=== PATIENT | female | born 1995 | race Caucasian/White ===

== ENCOUNTER 2017-09-01 13:09 | Emergency (ER) | payer SELFPAY ==
--- NOTE | 2017-09-01 13:36 | ER Document Report ---
ED Medical Screen (RME) - General Chief Complaint: Abdominal Pain Stated Complaint: ABDOMINAL PAIN, FLANK PAIN Time Seen by Provider: 09/01/17 13:35 Mode of Arrival: Ambulatory Information source: Patient Notes: This is a 22-year-old female with a history of SVT (metoprolol), depression ( Zoloft) who presents to the emergency room with 2-3 weeks of lower back and abdominal discomfort, abnormal vaginal discharge, some dysuria and diarrhea. Her periods have been irregular. TRAVEL OUTSIDE OF THE [place] IN LAST 30 DAYS: No - Related Data Allergies/Adverse Reactions: No Known Allergies Allergy (Verified 09/01/17 13:09) Past Medical History - Social History Chew tobacco use (# tins/day): No Frequency of alcohol use: None Drug Abuse: None Renal/ Medical History: Denies: Hx Peritoneal Dialysis Physical Exam - Vital signs Vitals: Temp Pulse Resp BP Pulse Ox 98.5 F 92 16 117/59 L 100 09/01/17 13:15 09/01/17 13:15 09/01/17 13:15 09/01/17 13:15 09/01/17 13:15 Course - Vital Signs Vital signs: Temp Pulse Resp BP Pulse Ox 98.5 F 92 16 117/59 L 100 09/01/17 13:15 09/01/17 13:15 09/01/17 13:15 09/01/17 13:15 09/01/17 13:15
[2017-09-01 14:05] LABS: ABSOLUTE EOSINOPHILS # (AUTO) 0.1 10^3/uL (0.0-0.6); ABSOLUTE LYMPHOCYTES (AUTO) 1.3 10^3/uL (0.5-4.7); ABSOLUTE MONOCYTES (AUTO) 0.5 10^3/uL (0.1-1.4); ABSOLUTE NEUT (AUTO) 3.7 10^3/uL (1.7-8.2); BASOPHILS % (AUTO) 0.8 % (0-2); EOSINOPHILS % (AUTO) 2.6 % (0-6); HEMATOCRIT 45.5 % (36.0-47.0); HEMOGLOBIN 16.2 g/dL (12.0-15.5); LYMPHOCYTES % (AUTO) 23.1 % (13-45); MEAN CORPUSCULAR HEMOGLOBIN 32.4 pg (27.0-33.4); MEAN CORPUSCULAR HGB CONC 35.5 g/dL (32.0-36.0); MEAN CORPUSCULAR VOLUME 91 fl (80-97); PLATELET COUNT 225 10^3/uL (150-450); RED BLOOD COUNT 4.98 10^6/uL (3.72-5.28); RED CELL DISTRIBUTION WIDTH 13.2 % (11.5-14.0); SEGMENTED NEUTROPHILS % (AUTO) 65.5 % (42-78); TOTAL CELLS COUNTED % (AUTO) 100 %; WHITE BLOOD COUNT 5.7 10^3/uL (4.0-10.5)
[2017-09-01 14:10] LABS: APPEARANCE,URINE SLIGHTLY-CLOUDY; BILIRUBIN,URINE NEGATIVE (NEGATIVE); COLOR,URINE YELLOW; GLUCOSE, URINE NEGATIVE (NEGATIVE); KETONES,URINE NEGATIVE (NEGATIVE); LEUKOCYTE ESTERASE,URINE SMALL (NEGATIVE); NITRITE,URINE NEGATIVE (NEGATIVE); PROTEIN,URINE NEGATIVE (NEGATIVE); URINE SPECIFIC GRAVITY 1.004; UROBILINOGEN,URINE NEGATIVE mg/dL (<2.0)
[2017-09-01 14:19] LABS: ALANINE AMINOTRANSFERASE 42 U/L (9-52); ALBUMIN 4.8 g/dL (3.5-5.0); ALKALINE PHOSPHATASE 49 U/L (38-126); ANION GAP 12 (5-19); ASPARTATE AMINO TRANSFERASE 31 U/L (14-36); BILIRUBIN,DIRECT 0.2 mg/dL (0.0-0.4); BILIRUBIN,TOTAL 0.4 mg/dL (0.2-1.3); BLOOD UREA NITROGEN 10 mg/dL (7-20); CALCIUM 9.9 mg/dL (8.4-10.2); CARBON DIOXIDE 27 mmol/L (22-30); CHLORIDE 105 mmol/L (98-107); GLUCOSE 73 mg/dL (75-110); POTASSIUM 4.4 mmol/L (3.6-5.0); SODIUM 144.4 mmol/L (137-145); TOTAL PROTEIN 8.1 g/dL (6.3-8.2)
--- NOTE | 2017-09-01 14:38 | ER Document Report ---
ED General - General Chief Complaint: Abdominal Pain Stated Complaint: ABDOMINAL PAIN, FLANK PAIN Time Seen by Provider: 09/01/17 13:35 Mode of Arrival: Ambulatory Information source: Patient Notes: 22 yr old female presents with 3 week duration of abd pain. pt notes nausea vomiting diarrhea. pt denies any fevers or chills. pt notes no concern for stds and does not want ot be tested. pt notes irregular period . pt states she did have a uti a few weeks ago given 5 days of a white or light blue antibiotics that improved symptoms for a few days then it returned. TRAVEL OUTSIDE OF THE [place] IN LAST 30 DAYS: No - HPI Onset: Other Onset/Duration: Intermittent, Waxing and waning Quality of pain: Cramping Severity: Mild Pain Level: 1 Associated symptoms: Diarrhea, Nausea, Vomiting, Other Exacerbated by: Denies Relieved by: Denies Similar symptoms previously: Yes Recently seen / treated by doctor: Yes - Related Data Allergies/Adverse Reactions: No Known Allergies Allergy (Verified 09/01/17 13:09) Past Medical History - General Information source: Patient - Social History Smoking Status: Former Smoker Cigarette use (# per day): No Chew tobacco use (# tins/day): No Smoking Education Provided: No Frequency of alcohol use: None Drug Abuse: None Family History: Reviewed & Not Pertinent Patient has suicidal ideation: No Patient has homicidal ideation: No Renal/ Medical History: Denies: Hx Peritoneal Dialysis Past Surgical History: Reports: Hx Tonsillectomy Review of Systems - Review of Systems Notes: REVIEW OF SYSTEMS: CONSTITUTIONAL : Denies fever, chills, or sweats. Denies recent illness. EENT: Denies eye, ear, throat, or mouth pain or symptoms. Denies nasal or sinus congestion or discharge. Denies throat, tongue, or mouth swelling or difficulty swallowing. CARDIOVASCULAR: Denies chest pain. Denies palpitations or racing or irregular heart beat. Denies ankle edema. RESPIRATORY: Denies cough, cold, or chest congestion. Denies shortness of breath, difficulty breathing, or wheezing. GASTROINTESTINAL: Admits to nausea vomiting diarrhea. GENITOURINARY: Denies difficulty urinating, painful urination, burning, frequency, blood in urine, or discharge. FEMALE GENITOURINARY: Denies vaginal bleeding, heavy or abnormal periods, irregular periods. Denies vaginal discharge or odor. MUSCULOSKELETAL: Denies back or neck pain or stiffness. Denies joint pain or swelling. SKIN: Denies rash, lesions or sores. HEMATOLOGIC : Denies easy bruising or bleeding. LYMPHATIC: Denies swollen, enlarged glands. NEUROLOGICAL: Denies confusion or altered mental status. Denies passing out or loss of consciousness. Denies dizziness or lightheadedness. Denies headache. Denies weakness or paralysis or loss of use of either side. Denies problems with gait or speech. Denies sensory loss, numbness, or tingling. Denies seizures. PSYCHIATRIC: Denies anxiety or stress. Denies depression, suicidal ideation, or homicidal ideation. ALL OTHER SYSTEMS REVIEWED AND NEGATIVE. PHYSICAL EXAMINATION: GENERAL: Well-appearing, well-nourished and in no acute distress. Sleeping upon my arrival to the room HEAD: Atraumatic, normocephalic. EYES: Pupils equal round and reactive to light, extraocular movements intact, conjunctiva are normal. ENT: Nares patent, oropharynx clear without exudates. Moist mucous membranes. NECK: Normal range of motion, supple without lymphadenopathy LUNGS: Breath sounds clear to auscultation bilaterally and equal. No wheezes rales or rhonchi. HEART: Regular rate and rhythm without murmurs ABDOMEN: Soft, minimally tender left lower quadrant, nondistended abdomen. No guarding, no rebound. No masses appreciated. Female : deferred Musculoskeletal: Normal range of motion, no pitting or edema. No cyanosis. NEUROLOGICAL: Cranial nerves grossly intact. Normal speech, normal gait. Normal sensory, motor exams PSYCH: Normal mood, normal affect. SKIN: Warm, Dry, normal turgor, no rashes or lesions noted. Dictation was performed using [employer] voice recognition software Physical Exam - Vital signs Vitals: Temp Pulse Resp BP Pulse Ox 98.5 F 92 16 117/59 L 100 09/01/17 13:15 09/01/17 13:15 09/01/17 13:15 09/01/17 13:15 09/01/17 13:15 Course - Re-evaluation Re-evalutation: 09/01/17 14:48 Patient's evaluation is quite benign, she requests testing for ovarian cysts since she has had this in the past 09/01/17 15:50 U/s transvaginal wit doppler noted no significant abnormality, will dc home with antibiotics and urien culture pending After performing a Medical Screening Examination, I estimate there is LOW risk for ACUTE APPENDICITIS, BOWEL OBSTRUCTION, ACUTE CHOLECYSTITIS, PERFORATED DIVERTICULITIS, INCARCERATED HERNIA, PANCREATITIS, PELVIC INFLAMMATORY DISEASE, PERFORATED ULCER, ECTOPIC , or TUBO-OVARIAN ABSCESS, thus I consider the discharge disposition reasonable. Also, there is no evidence or peritonitis , sepsis, or toxicity. I have reevaluated this patient multiple times and no significant life threatening changes are noted. The patient and I have discussed the diagnosis and risks, and we agree with discharging home with close follow-up with the understanding that symptoms and presentations can change. We also discussed returning to the Emergency Department immediately if new or worsening symptoms occur. We have discussed the symptoms which are most concerning (e.g., bloody stool, fever, changing or worsening pain, vomiting) that necessitate immediate return. - Vital Signs Vital signs: Temp Pulse Resp BP Pulse Ox 98.5 F 92 16 117/59 L 100 09/01/17 13:15 09/01/17 13:15 09/01/17 13:15 09/01/17 13:15 09/01/17 13:15 - Laboratory Result Diagrams: 09/01/17 13:43 09/01/17 13:43 Laboratory results interpreted by me: 09/01/17 09/01/17 09/01/17 13:43 13:43 13:43 Hgb 16.2 H Glucose 73 L Ur Leukocyte Esterase SMALL H - Diagnostic Test Radiology reviewed: Image reviewed, Reports reviewed Discharge - Discharge Clinical Impression: UTI (urinary tract infection) Qualifiers: Urinary tract infection type: acute cystitis Hematuria presence: without hematuria Qualified Code(s): N30.00 - Acute cystitis without hematuria Abdominal pain Qualifiers: Abdominal location: left lower quadrant Qualified Code(s): R10.32 - Left lower quadrant pain Condition: Stable Disposition: HOME, SELF-CARE Instructions: Abdominal Pain ([facility]), Urinary Tract Infection ([facility]) Additional Instructions: Follow up with your physician tomorrow for further care or return to the ED IMMEDIATELY if symptoms worsen or new concerns occur. If you cannot afford to follow up with your primary care physician a list of low cost clinics have been provided at the end of your discharge papers as well. Prescriptions: Nitrofurantoin Monohyd/M-Cryst [Macrobid 100 mg Capsule] 1 tab PO BID #20 capsule
--- NOTE | 2017-09-01 15:28 | RADIOLOGY REPORT (SQ) ---
EXAM DESCRIPTION: U/S NON OB PEL TV W/DOPPLER COMPLETED DATE/TIME: 09/01/2017 3:16 pm REASON FOR STUDY: LLQ pain COMPARISON: None. TECHNIQUE: Dynamic and static grayscale images acquired of the pelvis via transvaginal approach and recorded on PACS. Additional selected color Doppler and spectral images recorded. LIMITATIONS: None. FINDINGS: UTERUS: Contour normal. No mass. ENDOMETRIAL STRIPE: No focal or generalized thickening. No masses. CERVIX: No nabothian cysts. RIGHT OVARY AND DOPPLER: Normal size. No worrisome masses. Normal arterial vascular flow without evid ence for torsion. LEFT OVARY AND DOPPLER: Normal size. No worrisome masses. Normal arterial vascular flow without evide nce for torsion. FREE FLUID: None noted. OTHER: No other significant finding. MEASUREMENTS: UTERUS: 4.4 x 5.9 x 7.7 cm. ENDOMETRIAL STRIPE: 1.1 cm. RIGHT OVARY: 1.6 x 1.5 x 3.5 cm. LEFT OVARY: 2.1 x 2.4 x 2.9 cm. IMPRESSION: NORMAL TRANSVAGINAL PELVIC ULTRASOUND. TECHNICAL DOCUMENTATION: JOB ID: [id number]- All Rights Reserved Rev-08/30 Reading location - IP/workstation name: [email or web address]
[2017-09-01 16:49] VITALS: BP 108/58
[2017-09-01 17:49] LABS: CHLAM PCR NOT DETECTED (NOT DETECT); GON PCR NOT DETECTED (NOT DETECT)
== END 2017-09-01 16:48 | disposition home or self-care (01) ==
LOC: ER 13:09
DX: N30.00 Acute cystitis without hematuria (principal); R10.32 Left lower quadrant pain; R11.2 Nausea with vomiting, unspecified; R19.7 Diarrhea, unspecified; Z87.891 Personal history of nicotine dependence
CPT/HCPCS: 36415; 76830; 80053; 81001; 84702; 85025; 87086; 87491; 87591; 93976; 99284

== ENCOUNTER 2017-12-19 08:15 | Emergency (ER) | payer OTHER, BC ==
[2017-12-19] MEDS ORDERED: OXYCODONE-ACETAMINOPHEN 5-325 MG TABLET PO ONE (09:14)
[2017-12-19] MEDS ORDERED: DIPH/PERTUSS(ACELL)/TETANUS VAC/PF 0.5 ML SYR (>=10YO) IM ONE (09:14)
[2017-12-19] MEDS ORDERED: IBUPROFEN 800 MG TABLET PO ONE (09:30)
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
[2017-12-19] MEDS ORDERED: LIDOCAINE 1% INJ-PF (10 MG/ML) 30 ML SDV INJ ONE (10:50)
[2017-12-19 11:25] VITALS: BP 117/61
== END 2017-12-19 12:00 | disposition home or self-care (01) ==
LOC: ER 08:15
DX: S01.512A Laceration without foreign body of oral cavity, initial encounter (principal); S09.90XA Unspecified injury of head, initial encounter; R51 Headache; V49.40XA Driver injured in collision with unspecified motor vehicles in traffic accident, initial encounter
CPT/HCPCS: 99284; 90471; 70450; 72125; 90715; 41250; J3490

== ENCOUNTER 2019-05-11 13:26 | Emergency (ER) | payer BC, OTHER ==
[2019-05-11] MEDS ORDERED: NORMAL SALINE 1000 ML 1,000 ML IV ONE (14:50)
[2019-05-11] MEDS ORDERED: METOCLOPRAMIDE HCL INJ/PF 10 MG/2 ML SDV IV ONE (14:51)
--- NOTE | 2019-05-11 14:53 | ER Document Report ---
ED General - General Chief Complaint: Abdominal Pain Stated Complaint: ABDOMINAL PAIN Time Seen by Provider: 05/11/19 14:30 Primary Care Provider: THOM PARDO FNP [Primary Care Provider] - Follow up as needed Mode of Arrival: Ambulatory Information source: Patient TRAVEL OUTSIDE OF THE [place] IN LAST 30 DAYS: No - HPI Notes: Patient presents with abdominal pain. She also states that she has been feeling weak dizzy and having vomiting. She states she is 7 weeks . She states the symptoms have been going on for several weeks except for the pain. She states the pain started this morning. She states nothing makes it better or worse. It is currently mild. It is intermittent. She states it radiates throughout her abdomen. She denies any vaginal bleeding or leakage of fluid. She has no complaints of dysuria or problems with urination. No diarrhea. She states this is her first . - Related Data Allergies/Adverse Reactions: No Known Allergies Allergy (Verified 09/01/17 13:09) Past Medical History - General Information source: Patient - Social History Smoking Status: Never Smoker Frequency of alcohol use: None Drug Abuse: None Family History: Reviewed & Not Pertinent Renal/ Medical History: Denies: Hx Peritoneal Dialysis Psychiatric Medical History: Reports: Hx Anxiety Past Surgical History: Reports: Hx Tonsillectomy Review of Systems - Review of Systems Constitutional: denies: Chills, Fever Cardiovascular: denies: Chest pain, Palpitations Respiratory: denies: Cough, Short of breath -: Yes All other systems reviewed and negative Physical Exam - Vital signs Vitals: Temp Pulse Resp BP Pulse Ox 98.3 F 69 16 111/61 100 05/11/19 13:34 05/11/19 13:34 05/11/19 13:34 05/11/19 13:34 05/11/19 13:34 Interpretation: Normal - General General appearance: Appears well, Alert - HEENT Head: Normocephalic, Atraumatic Eyes: Normal Pupils: PERRL - Respiratory Respiratory status: No respiratory distress Chest status: Nontender Breath sounds: Normal Chest palpation: Normal - Cardiovascular Rhythm: Regular Heart sounds: Normal auscultation Murmur: No - Abdominal Inspection: Normal Distension: No distension Bowel sounds: Normal Tenderness: Tender - Mild lower abdominal pain with palpation no rebound or guarding. Organomegaly: No organomegaly - Back Back: Normal, Nontender - Extremities General upper extremity: Normal inspection, Nontender, Normal color, Normal ROM, Normal temperature General lower extremity: Normal inspection, Nontender, Normal color, Normal ROM, Normal temperature, Normal weight bearing. No: Gerardo's sign - Neurological Neuro grossly intact: Yes Cognition: Normal Orientation: AAOx4 [place] Coma Scale Eye Opening: Spontaneous Mike Coma Scale Verbal: Oriented [place] Coma Scale Motor: Obeys Commands [place] Coma Scale Total: 15 Speech: Normal Motor strength normal: LUE, RUE, LLE, RLE Sensory: Normal - Psychological Associated symptoms: Normal affect, Normal mood - Skin Skin Temperature: Warm Skin Moisture: Dry Skin Color: Normal Course - Re-evaluation Re-evalutation: 05/11/19 17:00 Patient presented with abdominal pain and vomiting as well as some dizziness. L aboratories unremarkable other than asymptomatic bacteriuria. Because she is I will treat this with Macrobid. She does feel better after fluids and antiemetics. She has tried the Unisom and vitamin B6 at home with no relief. I will discharge the patient with some Reglan and encourage fluid rehydration. She does have an appointment next week with her [employer] provider. Ultrasound shows a normal developing IUP at this stage. - Vital Signs Vital signs: Temp Pulse Resp BP Pulse Ox 98.3 F 69 16 111/61 100 05/11/19 13:34 05/11/19 13:34 05/11/19 13:34 05/11/19 13:34 05/11/19 13:34 - Laboratory Result Diagrams: 05/11/19 15:05 05/11/19 15:05 Laboratory results interpreted by me: 05/11/19 05/11/19 05/11/19 15:05 15:05 16:00 Seg Neutrophils % 78.4 H Sodium 135.5 L Beta HCG, Quant 676011.00 H Urine Ketones TRACE H Leukocyte Esterase Rfl MODERATE H - Diagnostic Test Radiology reviewed: Image reviewed, Reports reviewed Discharge - Discharge Clinical Impression: Hyperemesis affecting , antepartum, Abdominal pain during intrauterine , Asymptomatic bacteriuria during in first trimester Condition: Stable Disposition: HOME, SELF-CARE Instructions: Intravenous (IV) Fluids ([facility]), Reglan ([facility]) Additional Instructions: Please follow-up with your engineer assistant as scheduled Prescriptions: Nitrofurantoin Macrocrystal [Nitrofurantoin] 100 mg PO BID 5 Days #10 capsule Metoclopramide HCl [Reglan 10 mg Tablet] 1 tab PO Q6 #20 tablet Forms: Return to Work Referrals: THOM PARDO FNP [Primary Care Provider] - Follow up as needed
[2019-05-11 15:28] LABS: ABSOLUTE LYMPHOCYTES (AUTO) 1.3 10^3/uL (0.5-4.7); ABSOLUTE MONOCYTES (AUTO) 0.4 10^3/uL (0.1-1.4); ABSOLUTE NEUT (AUTO) 6.5 10^3/uL (1.7-8.2); BASOPHILS % (AUTO) 0.6 % (0-2); EOSINOPHILS % (AUTO) 0.2 % (0-6); HEMATOCRIT 41.9 % (36.0-47.0); HEMOGLOBIN 14.8 g/dL (12.0-15.5); LYMPHOCYTES % (AUTO) 15.9 % (13-45); MEAN CORPUSCULAR HEMOGLOBIN 32.1 pg (27.0-33.4); MEAN CORPUSCULAR HGB CONC 35.3 g/dL (32.0-36.0); MEAN CORPUSCULAR VOLUME 91 fl (80-97); MONOCYTES % (AUTO) 4.9 % (3-13); PLATELET COUNT 203 10^3/uL (150-450); RED CELL DISTRIBUTION WIDTH 12.9 % (11.5-14.0); SEGMENTED NEUTROPHILS % (AUTO) 78.4 % (42-78); TOTAL CELLS COUNTED % (AUTO) 100 %; WHITE BLOOD COUNT 8.2 10^3/uL (4.0-10.5)
[2019-05-11 15:44] LABS: ALBUMIN 4.2 g/dL (3.5-5.0); ALKALINE PHOSPHATASE 43 U/L (38-126); ANION GAP 9 (5-19); ASPARTATE AMINO TRANSFERASE 22 U/L (14-36); BILIRUBIN,TOTAL 0.4 mg/dL (0.2-1.3); BLOOD UREA NITROGEN 8 mg/dL (7-20); CALCIUM 9.5 mg/dL (8.4-10.2); CARBON DIOXIDE 24 mmol/L (22-30); CHLORIDE 103 mmol/L (98-107); GLUCOSE 96 mg/dL (75-110); TOTAL PROTEIN 7.1 g/dL (6.3-8.2)
[2019-05-11 16:34] LABS: APPEARANCE,URINE CLOUDY; BILIRUBIN,URINE NEGATIVE (NEGATIVE); COLOR,URINE YELLOW; GLUCOSE, URINE NEGATIVE (NEGATIVE); KETONES,URINE TRACE mg/dL (NEGATIVE); PROTEIN,URINE NEGATIVE (NEGATIVE); URINE SPECIFIC GRAVITY 1.008; UROBILINOGEN,URINE NEGATIVE mg/dL (<2.0)
--- NOTE | 2019-05-11 16:36 | RADIOLOGY REPORT (SQ) ---
EXAM DESCRIPTION: U/S OB TRANSVAGINAL W/O DOP COMPLETED DATE/TIME: 05/11/2019 4:22 pm REASON FOR STUDY: preg/pain COMPARISON: None. TECHNIQUE: Transvaginal static and realtime grayscale images acquired of the pelvis. Additional farheen cted spectral and color Doppler images recorded. All images stored on PACs. bHCG: Not available. CLINICAL DATES: 6 weeks 6 days. LIMITATIONS: None. FINDINGS: FETUS: Single Living intrauterine . ULTRASOUND EGA: 6 weeks 4 days. ULTRASOUND [place]: 12/31/2019. EFW: Not applicable less than 20 weeks. CRL: 6.6 mm. FHR: 100 beats per minute. SURVEY: Too early to assess. AMNIOTIC FLUID: Too early to assess. PLACENTA: Not yet developed due to early gestation. SUBCHORIONIC BLEED: No. SIZE OF BLEED: Not applicable. UTERUS: No masses. No anomalies. CERVICAL LENGTH: 2.6 cm. Closed. RIGHT ADNEXA: Normal ovary with normal vascular flow. No adnexal free fluid. No adnexal masses. LEFT ADNEXA: Normal ovary with normal vascular flow. No adnexal free fluid. No adnexal masses. FREE FLUID: None. OTHER: No other significant finding. IMPRESSION: LIVING INTRAUTERINE . EGA 6 WEEKS 4 DAYS. Trimester of : First trimester - 0 to 13 weeks. TECHNICAL DOCUMENTATION: JOB ID: [id number] [employer]- All Rights Reserved rev-08/30 Reading location - IP/workstation name: [email or web address]
[2019-05-11 17:25] VITALS: BP 115/53
== END 2019-05-11 17:24 | disposition home or self-care (01) ==
LOC: ER 13:26
DX: O21.8 Other vomiting complicating pregnancy (principal); R82.71 Bacteriuria; R10.9 Unspecified abdominal pain; R42 Dizziness and giddiness; R53.1 Weakness; Z3A.01 Less than 8 weeks gestation of pregnancy
CPT/HCPCS: 99284; 96361; 96374; 36415; 84702; 83690; 85025; 80053; 81001; 76817; J2765; J7030

== ENCOUNTER 2019-11-10 14:26 | Outpatient (CLI) | payer OTHER ==
[2019-11-10 15:24] LABS: APPEARANCE,URINE CLOUDY; BILIRUBIN,URINE NEGATIVE (NEGATIVE); COLOR,URINE AMBER; GLUCOSE, URINE NEGATIVE (NEGATIVE); KETONES,URINE NEGATIVE (NEGATIVE); LEUKOCYTE ESTERASE,URINE SMALL (NEGATIVE); NITRITE,URINE NEGATIVE (NEGATIVE); PROTEIN,URINE 30 mg/dL (NEGATIVE); URINE SPECIFIC GRAVITY 1.017
[2019-11-10 15:29] LABS: BACTERIA (WET MOUNT) 4+ BACTERIA SEEN; EPITHELIALS (WET MOUNT) 3+ EPITHELIALS SEEN; T.VAGINALIS (WET MOUNT) NO TRICHOMONAS SEEN; WBCS (WET MOUNT) 3+ WBCS SEEN; YEAST (WET MOUNT) YEAST SEEN
[2019-11-10 15:42] LABS: URINE AMPHETAMINES SCREEN NEGATIVE; URINE BARBITURATES SCREEN NEGATIVE; URINE BENZODIAZEPINES SCREEN NEGATIVE; URINE COCAINE SCREEN NEGATIVE; URINE MARIJUANA (THC) SCREEN NEGATIVE; URINE METHADONE SCREEN NEGATIVE; URINE PHENCYCLIDINE SCREEN NEGATIVE
[2019-11-10] MEDS ORDERED: FLUCONAZOLE 100 MG TABLET PO ONE (16:18)
[2019-11-10] MEDS ORDERED: FLUCONAZOLE 100 MG TABLET ONE (16:22)
[2019-11-10 17:00] LABS: CHLAM PCR NOT DETECTED (NOT DETECT)
== END 2019-11-10 16:44 | disposition home or self-care (01) ==
LOC: LC 14:26
PROVIDERS: ATTEND Obstetrics & Gynecology Gynecology
DX: O98.813 Other maternal infectious and parasitic diseases complicating pregnancy, third trimester (principal); Z3A.32 32 weeks gestation of pregnancy
CPT/HCPCS: 59025; 80307; 81001; 84112; 87210; 87491; 87591

== ENCOUNTER 2019-11-25 15:25 | Outpatient (CLI) | payer BC ==
--- NOTE | 2019-11-25 15:29 | Non Stress Test Report ---
Non Stress Test Datetime Report Generated by CPN: 11/25/2019 15:28 DEMOGRAPHIC EGA NST: 32.2 INDICATION Indication for Study (NST) Other: Yeast infection; IUP at 32.2 VITAL SIGNS Temperature - NST: 98.8 Pulse - NST: 94 RESP - NST: 18 NBPSYS NST: 101 NBPDIA NST: 61 MONITORING Monitor Explained: Monitor Explained; Test Explained; Patient Verbalized Understanding Time on Monitor: 11/10/2019 14:49 Time off Monitor: 11/10/2019 16:30 NST Duration: 101 NST INTERVENTIONS NST Interventions: PO Hydration Physician Notified NST: K. Collins, CNM BABY A: [id number] BABY A Movement : Present Contraction Frequency : Irritability FHR Baseline : 145 Accelerations : 15X15 Decelerations : None Variability : Moderate 6-25bpm NST Review: Meets Criteria for Reactive NST NST Review and Verified By : Cosme Fuentes RN NST Results: Reactive NST REPORT Report Trigger: Send Report
[2019-11-25] MEDS ORDERED: RINGERS SOLUTION,LACTATED 1,000 ML IV PRN (15:59)
[2019-11-25 16:02] LABS: APPEARANCE,URINE TURBID; BILIRUBIN,URINE NEGATIVE (NEGATIVE); COLOR,URINE YELLOW; GLUCOSE, URINE NEGATIVE (NEGATIVE); KETONES,URINE TRACE mg/dL (NEGATIVE); LEUKOCYTE ESTERASE,URINE TRACE (NEGATIVE); NITRITE,URINE NEGATIVE (NEGATIVE); PROTEIN,URINE 30 mg/dL (NEGATIVE); URINE SPECIFIC GRAVITY 1.013; UROBILINOGEN,URINE NEGATIVE mg/dL (<2.0)
[2019-11-25 16:15] LABS: URINE AMPHETAMINES SCREEN NEGATIVE; URINE BARBITURATES SCREEN NEGATIVE; URINE BENZODIAZEPINES SCREEN NEGATIVE; URINE COCAINE SCREEN NEGATIVE; URINE MARIJUANA (THC) SCREEN NEGATIVE; URINE METHADONE SCREEN NEGATIVE; URINE PHENCYCLIDINE SCREEN NEGATIVE
--- NOTE | 2019-11-25 17:38 | Non Stress Test Report ---
Non Stress Test Datetime Report Generated by CPN: 11/25/2019 17:38 DEMOGRAPHIC Test Number: 1 EGA NST: 34.3 VITAL SIGNS Temperature - NST: 97.0 Pulse - NST: 111 RESP - NST: 18 NBPSYS NST: 103 NBPDIA NST: 63 MONITORING Monitor Explained: Monitor Explained; Test Explained; Patient Verbalized Understanding Time on Monitor: 11/25/2019 15:39 Time off Monitor: 11/25/2019 16:57 NST Duration: 78 NST INTERVENTIONS NST Interventions: PO Hydration; IV Fluids; Reposition Patient Physician Notified NST: Dr. Adams BABY A Movement : Present Contraction Frequency : irregular FHR Baseline : 145 Accelerations : 15X15 Decelerations : None Variability : Moderate 6-25bpm NST Review: Meets Criteria for Reactive NST NST Review and Verified By : RAMIN Salcedo NST Results: Reactive NST REPORT Report Trigger: Send Report Report Trigger: Send Report
--- NOTE | 2019-11-25 18:24 | RADIOLOGY REPORT (SQ) ---
EXAM DESCRIPTION: U/S PROFILE W/O STRESS IMAGES COMPLETED DATE/TIME: 11/25/2019 5:30 pm REASON FOR STUDY: decreased movement IUP @ 34w6d COMPARISON: None. TECHNIQUE: Limited rudolph-scale realtime and static images of the fetus to measure specified parameter s. LIMITATIONS: None. FINDINGS: HEART RATE: 152 beats per minute. KRISTIE: 17.2 cm. MVP: 5.7 cm. BREATHING MOVEMENT: 2 points. MOVEMENT: 2 points. POSTURE AND TONE: 2 points. QUALITATIVE KRISTIE: 2 points. OTHER: No other significant finding. IMPRESSION: BIOPHYSICAL PROFILE: 11/20. Trimester of : Third - 28 weeks to delivery COMMENT: BREATHING MOVEMENTS: 2 POINTS: PRESENT 0 POINTS: ABSENT MOTION: 2 POINTS: PRESENT 0 POINTS: ABSENT TONE: 2 POINTS: PRESENT 0 POINTS: ABSENT AMNIOTIC FLUID VOLUME: 2 POINTS: LARGEST POCKET GREATER THAN 2 CM DEPTH. 0 POINTS: NO POCKET OF 2 CM. TECHNICAL DOCUMENTATION: JOB ID: [id number] 2010 [employer]- All Rights Reserved Reading location - IP/workstation name: [email or web address]
== END 2019-11-25 17:37 | disposition home or self-care (01) ==
LOC: LC 15:25
PROVIDERS: ATTEND Specialist
DX: O36.8130 Decreased fetal movements, third trimester, not applicable or unspecified (principal); Z3A.34 34 weeks gestation of pregnancy
CPT/HCPCS: 59025; 76819; 80307; 81001; 87086; 94760

== ENCOUNTER 2019-11-28 23:37 | Emergency (ER) | payer BC ==
[2019-11-28 23:53] VITALS: BP 125/67
--- NOTE | 2019-11-29 00:05 | ER Document Report ---
ED Medical Screen (RME) - General Stated Complaint: HEART PALPITATIONS Time Seen by Provider: 11/28/19 23:59 Primary Care Provider: JOSHUA HORTON MD [Primary Care Provider] - Follow up as needed Mode of Arrival: Ambulatory Information source: Patient Notes: HPI; 35-week female 1 presents to the emergency room complaining of intermittent palpitations since Saturday. States was worse tonight. Chest pain does complain of shortness of breath. States she went to labor and delivery and was sent to the emergency room to be evaluated. States it was first noted on Saturday when she did come in for a labor check but has not followed up with anybody since being seen on Saturday. She denies any recent travel. No COVID-19 exposure. PE: Alert and oriented x3. Lungs: Clear to auscultation without rales, rhonchi, wheezes. Heart tachycardic without murmurs rubs or gallops. I have greeted and performed a rapid initial assessment of this patient. A comprehensive ED assessment and evaluation of the patient, analysis of test results and completion of the medical decision making process will be conducted by additional ED providers. I have specifically instructed the patient or family members with the patient to immediately return to any nursing staff should anything change in the patient's condition or with their chief complaint. TRAVEL OUTSIDE OF THE [place] IN LAST 30 DAYS: No - Related Data Allergies/Adverse Reactions: No Known Allergies Allergy (Verified 11/10/19 14:38) Past Medical History Renal/ Medical History: Denies: Hx Peritoneal Dialysis Psychiatric Medical History: Reports: Hx Anxiety Past Surgical History: Reports: Hx Tonsillectomy Physical Exam - Vital signs Vitals: Temp Pulse Resp BP Pulse Ox 98.0 F 140 H 18 125/67 100 11/28/19 23:52 11/28/19 23:52 11/28/19 23:52 11/28/19 23:52 11/28/19 23:52 Course - Vital Signs Vital signs: Temp Pulse Resp BP Pulse Ox 98.0 F 140 H 18 125/67 100 11/28/19 23:52 11/28/19 23:52 11/28/19 23:52 11/28/19 23:52 11/28/19 23:52 Doctor's Discharge - Discharge Referrals: JOSHUA HORTON MD [Primary Care Provider] - Follow up as needed
--- NOTE | 2019-11-29 08:30 | EKG REPORT ---
SEVERITY:- BORDERLINE ECG - SINUS TACHYCARDIA INFERIOR Q WAVES, PROBABLY NORMAL VARIATION : Confirmed by: Zane Bryant MD 29-Nov-2019 08:29:43
== END 2019-11-29 01:15 | disposition admitted as inpatient to this hospital (09) ==
LOC: ER 23:37
DX: Z53.20 Procedure and treatment not carried out because of patient's decision for unspecified reasons (principal); R00.2 Palpitations
CPT/HCPCS: 93005; 93010; 99281

== ENCOUNTER → 2019-12-16 | Outpatient (CLI) | payer BC ==
--- NOTE | 2019-12-16 23:24 | Non Stress Test Report ---
Non Stress Test Datetime Report Generated by CPN: 12/16/2019 23:23 DEMOGRAPHIC EGA NST: 35.0 INDICATION Indication for Study (NST) Other: Greater than 32 weeks URINE RESULTS Urine Protein, NST: Negative Urine Ketones - NST: Negative Urine Glucose - NST: Negative Urine Blood - NST: Negative MONITORING Monitor Explained: Monitor Explained; Test Explained; Patient Verbalized Understanding Time on Monitor: 11/29/2019 01:47 Time off Monitor: 11/29/2019 03:27 NST INTERVENTIONS NST Interventions: PO Hydration Physician Notified NST: Dr. Deng BABY A: [id number] BABY A Movement : Present Contraction Frequency : Rarely FHR Baseline : 140 Accelerations : 15X15 Decelerations : None Variability : Moderate 6-25bpm NST Review: Meets Criteria for Reactive NST NST Review and Verified By : rose CLAYTON Results: Reactive NST REPORT Report Trigger: Send Report
--- NOTE | 2019-12-17 02:12 | Non Stress Test Report ---
Non Stress Test Datetime Report Generated by CPN: 12/17/2019 02:11 DEMOGRAPHIC EGA NST: 37.3 INDICATION Indication for Study (NST) Other: Labor check- contractions VITAL SIGNS Temperature - NST: 99.0 Pulse - NST: 88 RESP - NST: 17 NBPSYS NST: 113 NBPDIA NST: 63 (Annotations: Data stored by CPN on behalf of user) MONITORING Monitor Explained: Monitor Explained; Test Explained; Patient Verbalized Understanding Time on Monitor: 12/16/2019 23:24 Time off Monitor: 12/16/2019 23:53 NST INTERVENTIONS NST Interventions: PO Hydration; Reposition Patient Physician Notified NST: dr elliott BABY A Movement : Present Contraction Frequency : occasional FHR Baseline : 145 Accelerations : 15X15 Decelerations : None Variability : Moderate 6-25bpm NST Review: Meets Criteria for Reactive NST NST Review and Verified By : RAMIN Rodríguez Results: Reactive NST REPORT Report Trigger: Send Report
== END ==
LOC: LC 23:11
PROVIDERS: ATTEND Obstetrics & Gynecology
DX: O47.1 False labor at or after 37 completed weeks of gestation (principal); Z3A.37 37 weeks gestation of pregnancy; Z02.83 Encounter for blood-alcohol and blood-drug test
CPT/HCPCS: 59025; 80307; 81005

== ENCOUNTER 2019-12-24 05:08 | Inpatient (IN) | payer BC ==
[2019-12-24 06:49] LABS: APPEARANCE,URINE CLEAR; BILIRUBIN,URINE NEGATIVE (NEGATIVE); COLOR,URINE YELLOW; GLUCOSE, URINE NEGATIVE (NEGATIVE); KETONES,URINE NEGATIVE (NEGATIVE); LEUKOCYTE ESTERASE,URINE NEGATIVE (NEGATIVE); NITRITE,URINE NEGATIVE (NEGATIVE); PROTEIN,URINE NEGATIVE (NEGATIVE); URINE SPECIFIC GRAVITY 1.009; UROBILINOGEN,URINE NEGATIVE mg/dL (<2.0)
[2019-12-24 07:14] LABS: URINE AMPHETAMINES SCREEN NEGATIVE; URINE BARBITURATES SCREEN NEGATIVE; URINE BENZODIAZEPINES SCREEN NEGATIVE; URINE COCAINE SCREEN NEGATIVE; URINE MARIJUANA (THC) SCREEN NEGATIVE; URINE METHADONE SCREEN NEGATIVE; URINE PHENCYCLIDINE SCREEN NEGATIVE
[2019-12-24] MEDS ORDERED: RINGERS SOLUTION,LACTATED 1,000 ML IV ONE (09:33)
--- NOTE | 2019-12-24 09:36 | Admission Physical ---
Datetime Report Generated by CPN: 12/24/2019 09:36 CURRENT ADMISSION Chief Complaint: Uterine Contractions Indication for Induction: Not Applicable Admit Impression : Term, Intrauterine Admit Plan: Admit to Unit; Initiate Labor Protocol ALLERGIES Medication Allergies: No Medication Allergies: No Known Allergies (12/17/2019) Latex: No Latex Allergies OBSTETRICAL HISTORY EDC: 01/03/2020 00:00 : 1 Para: 0 Term: 0 : 0 SAB: 0 IAB: 0 Ectopic: 0 Livin Cesareans: 0 VBACs: 0 Multiple Births: 0 Gestational Diabetes: No Rh Sensitization: No Incompetent Cervix: No JODY: No Infertility: No ART Treatment: No Uterine Anomaly: No IUGR: No Hx Previous C/S: No Macrosomia: No Hx Loss/Stillborn: No PIH: No Hx : No Placenta Previa/Abruption: No Depression/PP Depression: No PTL/PROM: No Post Hemorrhage: No Current Procedures: Ultrasound; NST Obstetrical History Comments: G1- current SEE RECORDS Alcohol: No Marijuana : No Cocaine: No Other Illicit Drugs: No Cigarettes: Former Smoker. [id number] MEDICAL HISTORY Diabetes: No Blood Transfusion: No Pulmonary Disease (Asthma, TB): No Breast Disease: No Hypertension: Yes Inclusion Internship Surgery: No Heart Disease: Yes Hosp/Surgery: Yes Autoimmune Disorder: No Anesthetic Complications: No Kidney Disease: No Abnormal Pap Smear: No Neuro/Epilepsy: No Psychiatric Disorders: Yes Other Medical Diseases: No Hepatitis/Liver Disease: No Significant Family History: No Varicosities/Phlebitis: No Trauma/Violence : No Thyroid Dysfunction: No Medical History Comments: HTN, SVT, hospitalized for hyperemesis gravidarum in april 2019, hospitalized for dehydration in 2019, tonsillectomy 2008, anxiety- on zoloft INFECTIOUS HISTORY Gonorrhea: No Genital Herpes: No Chlamydia: No Tuberculosis: No Syphilis: No Hepatitis: No HIV/AIDS Exposure: No Rash or Viral Illness: No HPV: No PHYSICAL EXAM General: Normal HEENT: Normal Neurologic: Normal Thyroid: Normal Heart: Normal Lungs: Normal Breast: Deferred Back: Normal Abdomen: Normal Genitourinary Exam: Normal Extremities: Normal DTRs: Normal Pelvic Type: Adequate FETUS A EGA: 38.4 PLANS FOR LABOR AND DELIVERY Pain Management: Epidural Feeding Preference: Breast Benefit of Breast Feed Discussed: Yes Circumcision: Yes INFORMED CONSENT Signature: with User ID: [email or web address]
[2019-12-24] MEDS ORDERED: RINGERS SOLUTION,LACTATED 1,000 ML IV PRN (09:37)
[2019-12-24] MEDS ORDERED: OXYTOCIN 10 UNIT/ML VIAL ONE (10:02)
[2019-12-24] MEDS ORDERED: MISOPROSTOL 0.2 MG TABLET ONE (10:02)
[2019-12-24] MEDS ORDERED: EPHEDRINE SULFATE INJ 50 MG/1 ML AMPULE ONE (10:02)
[2019-12-24] MEDS ORDERED: LIDOCAINE 1% INJ-PF (10 MG/ML) 30 ML SDV ONE (10:03)
[2019-12-24] MEDS ORDERED: OXYTOCIN/0.9 % SODIUM CHLORIDE 30 UNIT/500 ML RTUINJ ONE (10:03)
[2019-12-24] MEDS ORDERED: FENTANYL/BUPIVACAINE/NS/PF 300 MCG/150 ML RTUINJ EPI ONE (10:03)
[2019-12-24] MEDS ORDERED: ROPIVACAINE HCL 0.2% INJ/PF (2 MG/ML) 20 ML SDV ONE (10:03)
[2019-12-24 10:11] LABS: ABSOLUTE LYMPHOCYTES (AUTO) 1.3 10^3/uL (0.5-4.7); ABSOLUTE MONOCYTES (AUTO) 0.7 10^3/uL (0.1-1.4); BASOPHILS % (AUTO) 0.3 % (0-2); HEMOGLOBIN 14.5 g/dL (12.0-15.5); MEAN CORPUSCULAR HEMOGLOBIN 33.5 pg (27.0-33.4); MEAN CORPUSCULAR HGB CONC 35.3 g/dL (32.0-36.0); MEAN CORPUSCULAR VOLUME 95 fl (80-97); MONOCYTES % (AUTO) 5.2 % (3-13); PLATELET COUNT 161 10^3/uL (150-450); RED BLOOD COUNT 4.32 10^6/uL (3.72-5.28); RED CELL DISTRIBUTION WIDTH 13.4 % (11.5-14.0); SEGMENTED NEUTROPHILS % (AUTO) 84.5 % (42-78); TOTAL CELLS COUNTED % (AUTO) 100 %
[2019-12-24] MEDS ORDERED: HYDROXYZINE PAMOATE 50 MG CAPSULE ONE (11:01)
[2019-12-24] MEDS ORDERED: HYDROXYZINE PAMOATE 50 MG CAPSULE PO ONE (11:04)
[2019-12-24] MEDS ORDERED: DIBUCAINE 1% OINTMENT 28 GM TP PRN (17:08)
[2019-12-24] MEDS ORDERED: MAGNESIUM HYDROXIDE SUSP 30 ML UDCUP PO PRN (17:08)
[2019-12-24] MEDS ORDERED: PROMETHAZINE HCL INJ 25 MG/1 ML VIAL IV PRN (17:08)
[2019-12-24] MEDS ORDERED: GLYCERIN/WITCH HAZEL LEAF 1 EACH MED..WIPE TP PRN (17:08)
[2019-12-24] MEDS ORDERED: OXYTOCIN/0.9 % SODIUM CHLORIDE 30 UNIT/500 ML RTUINJ IV PRN (17:08)
[2019-12-24] MEDS ORDERED: ACETAMINOPHEN WITH CODEINE #3 TABLET PO PRN ×2 (17:08)
[2019-12-24] MEDS ORDERED: MEASLES,MUMPS&RUBELLA VACC/PF 0.5 ML VIAL SUBCUT PRN (17:08)
[2019-12-24] MEDS ORDERED: PROMETHAZINE HCL 25 MG TABLET PO PRN (17:08)
[2019-12-24] MEDS ORDERED: PSEUDOEPHEDRINE HCL 30 MG TABLET PO PRN (17:08)
[2019-12-24] MEDS ORDERED: DIPH/PERTUSS(ACELL)/TETANUS VAC/PF 0.5 ML SYR (>=10YO) IM PRN (17:08)
[2019-12-24] MEDS ORDERED: NA PHOS,M-B/NA PHOS,DI-BA (ADULT) 133 ML ENEMA PR PRN (17:08)
[2019-12-24] MEDS ORDERED: DIPHENHYDRAMINE HCL 25 MG CAPSULE PO PRN (17:08)
[2019-12-24] MEDS ORDERED: PROMETHAZINE HCL 25 MG SUPP.RECT PR PRN (17:08)
[2019-12-24] MEDS ORDERED: ACETAMINOPHEN 325 MG TABLET PO PRN (17:08)
[2019-12-24] MEDS ORDERED: BENZOCAINE/MENTHOL AEROSOL SPRAY 56 ML TOP PRN (17:08)
[2019-12-24] MEDS ORDERED: ZOLPIDEM TARTRATE 5 MG TABLET PO PRN (17:08)
--- NOTE | 2019-12-24 18:27 | Delivery Summary ---
Del Sum A-C Datetime Report Generated by CPN: 12/24/2019 18:27 DELIVERY PERSONNEL DELIVERY PERSONNEL: [id number] Nurse Real Estate Loan Processor Certified:: Shirley Cordova CNM Labor and Delivery Nurse:: Julienne Miles RN Nursery Nurse:: Kelsey Fox RN Electric Motorman/CONSTRUCTION SALES REPRESENTATIVE: Shahla Alaniz, ST Electric Motorman/CONSTRUCTION SALES REPRESENTATIVE: Amyrosaura Brooks, WRAPPING MACHINE TENDER MATERNAL INFORMATION Delivery Anesthesia: Epidural Medications After Delivery: Pitocin 30 Units in 500ml NS/D5W; Cytotec 1000mcg Per Rectum/Vagina Delivery QBL: 150 Maternal Complications: None Provider Comments: JESICA VIABLE MALE WITH SPONTANEOUS CRY. CORD DOUBLE CLAMPED AND CUT. SPONTANEOUS PLACENTA INTACT WITH 3VC. BILATERAL PERIURETHRAL LACERATIONS NOT BLEEDING, NOT REPAIRED. MOTHER AND STABLE IN L_D#7 LABOR SUMMARY EDC: 01/03/2020 00:00 No. Babies in Womb: 1 Attempted: No Labor Anesthesia: Epidural LABOR INFORMATION Reason for Induction: Not Applicable Onset of Labor: 12/24/2019 09:29 Complete Dilatation: 12/24/2019 15:15 Oxytocin: Augmentation Group B Beta Strep: Negative Antibiotics # of Doses: n/a Name of Antibiotic Given: n/a Steroids Given: None Reason Steroids Not Administered: Not Applicable MEMBRANES Membranes Rupture Method: Artificial Rupture of Membranes: 12/24/2019 10:10 Length of Rupture (hr): 6.75 Amniotic Fluid Color: Clear Amniotic Fluid Amount: Small Amniotic Fluid Odor: Normal STAGES OF LABOR Stage 1 hr: 5 Stage 1 min: 46 Stage 2 hr: 1 Stage 2 min: 40 Stage 3 hr: 0 Stage 3 min: 5 Total Time in Labor hr: 7 Total Time in Labor min: 31 VAGINAL DELIVERY Episiotomy: None Laceration #1: Periurethral Laceration Repair: Not Applicable Sponge Count Correct: N/A Sharps Count Correct: N/A BABY A INFORMATION Infant Delivery Date/Time: 12/24/2019 16:55 Method of Delivery: Vaginal Born in Route : No : N/A Forceps: N/A Vacuum Extraction: N/A Shoulder Dystocia : No PRESENTATION/POSITION BABY A Presentation: Cephalic Cephalic Presentation: Vertex Vertex Position: Right Occipital Anterior Breech Presentation: N/A PLACENTA INFORMATION BABY A Placenta Delivery Time : 12/24/2019 17:00 Placenta Method of Delivery: Spontaneous Placenta Status: Delivered SCORES BABY A Heart Rate 1 min: >100 bpm Resp Effort 1 min: Good Cry Reflex Irritability 1 min: Cough or Sneeze or Pulls Away Muscle Tone 1 min: Active Motion Color 1 min: Body Lyon, Extremities Blue Resuscitation Effort 1 min: Tactile Stimulation SCORE 1 MIN: 9 Heart Rate 5 min: >100 bpm Resp Effort 5 min: Good Cry Reflex Irritability 5 min: Cough or Sneeze or Pulls Away Muscle Tone 5 min: Active Motion Color 5 min: Body Lyon, Extremities Blue Resuscitation Effort 5 min: Tactile Stimulation SCORE 5 MIN: 9 INFANT INFORMATION BABY A Gestational Age at Delivery: 38.4 Gestational Status: Early Term- 37- 38.6 Weeks Infant Outcome : Liveborn Infant Condition : Stable Infant Sex: Male IDENTIFICATION BABY A Verification Date/Time: 12/24/2019 18:12 ID Band Number: [id number] Mother's Name Verified: Yes Infant RN Verifying : Ramo, RN and C. Ruddy, RN WEIGHT/LENGTH BABY A Birthweight (gm): 3831 Infant Weight (lb): 8 Weight (oz): 7 Infant Length (in): 20.50 Length (cm): 52.07 CORD INFORMATION BABY A No. Cord Vessels: 3 Nuchal Cord : N/A Cord Blood Taken: Yes-For Storage (Mom's Blood type +) Infant Suction: None ASSESSMENT BABY A Skin to Skin: Yes Skin to Skin Time (min): 60 BABY B INFORMATION : N/A SIGNATURES Assignment: Wyatt Deng MD Signature: with User ID: [email or web address] : with User ID: [email or web address] : I was personally available for consultation and serving as supervising physician for the P.
--- NOTE | 2019-12-24 18:28 | Birth Certificate Data ---
Cert Data Datetime Report Generated by [facility]: 12/24/2019 18:27 CERTIFICATE DATA 47a. Care: Yes (11/10/2019 14:41:Kelsey Faria RN) 47b. Date of First Visit: 06/28/2019 00:00 (11/10/2019 14:41:Julienne Miles RN) 47c. Date of Last Visit: 12/22/2019 00:00 (11/10/2019 14:41:Julienne Miles RN) 47d. Number of Visits: 10 (11/10/2019 14:41:Julienne Miles RN) 48a. Number of Prev Live Births: 0 (11/10/2019 14:41:Kelsey Faria RN) 48b. Now Livin (11/10/2019 14:41:Julienne Miles RN) 48c. Live Births Now : 0 (11/10/2019 14:41: system process) 48e. Losses: 0 (11/10/2019 14:41:Kelsey Faria RN) RISK FACTORS IN THIS 49a. Diabetes: No (11/10/2019 14:41:Joan Zhang RN) 49b. Hypertension: No (11/10/2019 14:41:Pat Tang RN) 49c. Previous Births: 0 (11/10/2019 14:41:Julienne Miles RN) 49d. Stillborns: No (11/10/2019 14:41:Kelsey Faria RN) 49d. IUGR: No (11/10/2019 14:41:Joan Zhang RN) 49e. Infertility Treatment: No (11/10/2019 14:41:Joan Zhang RN) 49f. Previous Cesareans: 0 (11/10/2019 14:41:Kelsey Faria RN) Mother's Height 50b. Height Inches: 67 (12/24/2019 06:01:QS system process) Mother's Weight 51a. Pre- Weight (lbs): 169 (11/10/2019 14:41:Kelsey Faria RN) 51b. Weight at Delivery (lbs): 189 (12/24/2019 06:01:QS system process) 52. Dt Last Normal Menses Began: 03/29/2019 00:00 (11/10/2019 14:41:Julienne Miles RN) Infections Present/Treated 53a. Gonorrhea: No (11/10/2019 14:41:Joan Zhang RN) Results this Hospital Visit : Negative (11/10/2019 14:41:Julienne Miles RN) 53b. Syphilis: No (11/10/2019 14:41:Joan Zhang RN) 53c. Chlamydia: No (11/10/2019 14:41:Joan Zhang RN) Results this Hospital Visit: Negative (11/10/2019 14:41:Julienne Miles RN) 53d. Hepatitis B: No (11/10/2019 14:41:Joan Zhang RN) Results this Hospital Visit: Negative (11/10/2019 14:41:Kelsey Faria RN) 53e. Hepatitis C: Negative (11/10/2019 14:41:Kelsey Faria RN) 53h. Mother Tested for HBsAG: Yes (11/10/2019 14:41:Julienne Miles RN) 53i. Date Tested: 06/18/2019 00:00 (11/10/2019 14:41:Julienne Miles RN) 53j. Test Result: Negative (11/10/2019 14:41:Kelsey Faria RN) Obstetric Procedures 54a, b, c. Obstetric Procedures: Ultrasound; NST (11/10/2019 14:41:Kelsey Faria RN) Cigarette Smoking 55a. 3 Months Before Preg - Ci (11/10/2019 14:41:Pat Tang RN) 55a. Packs: 0 (11/10/2019 14:41:Pat Tang RN) 55b. 1st Trimester of Preg- Ci (11/10/2019 14:41:Pat Tang RN) 55b. Packs: 0 (11/10/2019 14:41:Pat Tang RN) 55c. 2nd Trimester of Preg- Ci (11/10/2019 14:41:Pat Tang RN) 55c. Packs: 0 (11/10/2019 14:41:Pat Tang RN) 55d. 3rd Trimester of Preg- Ci (11/10/2019 14:41:Pat Tang RN) 55d. Packs: 0 (11/10/2019 14:41:Pat Tang RN) Onset of Labor 56a. PROM >12 Hrs: 6.75 (11/10/2019 14:41:QS system process) 56b. Precipitous Labor <3 Hrs: 7 (11/10/2019 14:41:QS system process) 56c. Prolonged Labor > 20 Hrs: 7 (11/10/2019 14:41:QS system process) 57a. Induction of Labor: Augmentation (11/10/2019 14:41:Julienne Miles RN) 57c. Non-Vertex Presentation A: Vertex (11/10/2019 14:41:Julienne Miles RN) 57d. Steroids - Lung Mat: None (11/10/2019 14:41:Julienne Miles RN) 57d. Steroids - Lung Mat: Not Applicable (11/10/2019 14:41:Julienne Miles RN) 57f. Mat [place] or Temp >100.4: 99.2 (11/10/2019 14:41:Julienne Miles RN) 57g. Moderate/Heavy Meconium: Clear (12/24/2019 10:10:Pat Tang RN) 57i. Epidural/Spinal Anesthesia: Epidural (11/10/2019 14:41:Julienne Miles RN) Method of Delivery 58a. Forceps - Unsuccessful A: N/A (11/10/2019 14:41:Julienne Miles RN) 58b. Vacuum - Unsuccessful A: N/A (11/10/2019 14:41:Julienne Miles RN) 58c. Presentation at 58c. Presentation at - A : Vertex (11/10/2019 14:41:Julienne Miles RN) 58c. Presentation at - A : N/A (11/10/2019 14:41:Julienne Miles RN) 58c. Presentation at - A : Cephalic (12/24/2019 10:10:Pat Tang RN) Final Route and Method of Del 58d. Baby A Route/Delivery: Vaginal (12/24/2019 16:55:Julienne Miles RN) 58e. Trial of Labor Attempted: No (11/10/2019 14:41:Julienne Miles RN) 58e. Trial of Labor Attempted A: N/A (11/10/2019 14:41:Julienne Miles RN) 58e. Trial of Labor Attempted B: N/A (11/10/2019 14:41:Julienne Miles RN) Maternal Morbidity 59b. 3rd or 4th Degree Lacs: Periurethral (11/10/2019 14:41:Shirley Cordova CNM ) Birthweight Baby A: 3831 (11/10/2019 14:41:Julienne Feuston, RN) 60a. Pounds : 8 (11/10/2019 14:41:QS system process) 60b. Ounces: 7 (11/10/2019 14:41:QS system process) 61. GA at Delivery Baby A: 38.4 (11/10/2019 14:41:Julienne Jd, RN) : Early Term- 37- 38.6 Weeks (11/10/2019 14:41:QS system process) 62a. 5 Minute Baby A: 9 (11/10/2019 14:41:QS system process)
[2019-12-24] MEDS: IBUPROFEN 800 MG TABLET PO SCH ×2 (21:26→21:47)
[2019-12-24] MEDS: FAMOTIDINE 20 MG TABLET PO SCH (21:26)
[2019-12-25] MEDS: IBUPROFEN 800 MG TABLET PO SCH ×3 (05:30→21:18)
[2019-12-25 06:33] LABS: HEMOGLOBIN 13.4 g/dL (12.0-15.5); MEAN CORPUSCULAR HEMOGLOBIN 33.5 pg (27.0-33.4); MEAN CORPUSCULAR HGB CONC 35.2 g/dL (32.0-36.0); MEAN CORPUSCULAR VOLUME 95 fl (80-97); PLATELET COUNT 156 10^3/uL (150-450); RED BLOOD COUNT 3.98 10^6/uL (3.72-5.28); RED CELL DISTRIBUTION WIDTH 13.9 % (11.5-14.0); WHITE BLOOD COUNT 13.6 10^3/uL (4.0-10.5)
[2019-12-25] MEDS: PRENATAL VITAMIN W DHA CAPSULE PO SCH (09:22)
[2019-12-25] MEDS: FERROUS SULFATE 325 MG TABLET PO SCH ×3 (09:23→17:50)
[2019-12-25] MEDS: DOCUSATE SODIUM 100 MG CAPSULE PO SCH ×2 (09:23→17:51)
[2019-12-25] MEDS: SENNOSIDES/DOCUSATE 8.6-50 MG 1 EACH TABLET PO SCH (09:23)
[2019-12-25] MEDS: FAMOTIDINE 20 MG TABLET PO SCH ×2 (09:23→21:18)
--- NOTE | 2019-12-25 12:28 | PDOC PROGRESS REPORT ---
Subjective-OB Progress Note for:: 12/25/19 Subjective: Pt doing well, no concerns. She reports light bleeding reg diet and voiding w/o difficulty. Physical Exam (OB) Vital Signs: Temp Pulse Resp BP Pulse Ox 98.0 F 92 16 107/67 99 12/25/19 07:11 12/25/19 07:11 12/25/19 07:11 12/25/19 07:11 12/25/19 07:11 Intake & Output 12/24/19 12/25/19 12/26/19 06:59 06:59 06:59 Weight 86.1 kg - Maternal Morbidity 59. Maternal Morbidity (serious complications experinced by the mother associated with labor and delivery: None of the above - Lochia Lochia Amount: Small 10-25 ml Lochia Color: Rubra/Red - Abdomen Description: Firm Hernia Present: No Fundal Description: Firm Fundal Height: u/u - u/2 Objective-Diagnostic Laboratory: 12/25/19 06:05 12/25/19 06:05 WBC 13.6 H RBC 3.98 Hgb 13.4 Hct 38.0 MCV 95 MCH 33.5 H MCHC 35.2 RDW 13.9 Plt Count 156 Assessment and Plan(PN) - Assessment and Plan (1) Active labor at term Is this a current diagnosis for this admission?: Yes (2) Anxiety Is this a current diagnosis for this admission?: Yes (3) Normal vaginal delivery Is this a current diagnosis for this admission?: Yes - Time Spent with Patient Time with patient: Less than 15 minutes Medications reviewed and adjusted accordingly: Yes - Disposition Anticipated Discharge Disposition: Home, Self Care Anticipated Discharge Timeframe: within 24 hours
[2019-12-25] MEDS: SERTRALINE HCL 50 MG TABLET PO SCH (15:06)
[2019-12-26] MEDS: IBUPROFEN 800 MG TABLET PO SCH (05:06)
[2019-12-26 08:11] VITALS: BP 122/63
--- NOTE | 2019-12-26 09:39 | PDOC DISCHARGE SUMMARY ---
Impression - Admit/DC Date/PCP Admission Date/Primary Care Provider: 12/24/19 09:34 Discharge Date: 12/26/19 - Discharge Diagnosis (1) Active labor at term Is this a current diagnosis for this admission?: Yes (2) Anxiety Is this a current diagnosis for this admission?: Yes (3) Normal vaginal delivery Is this a current diagnosis for this admission?: Yes - Additional Information Resuscitation Status: Full Code Discharge Diet: Regular Discharge Activity: Balance Activity w/Rest, Pelvic Rest Home Medications: Sertraline HCl [Zoloft] 25 mg PO DAILY 09/01/17 Pnv No.95/Ferrous Fum/Folic AC [ Caplet] 1 each PO DAILY 11/10/19 HPI Gestational Age: 38.4 Reason(s) for Admission: Onset of Labor Procedures: NST Intrapartum Procedure(s): Spontaneous Vaginal Delivery Complication(s): Laceration-Periurethral Laceration-Degree: 1st Hospital Course 59. Maternal Morbidity (serious complications experinced by the mother associated with labor and delivery: None of the above Results Laboratory Results: WBC 13.6 10^3/uL (4.0-10.5) H 12/25/19 06:05 RBC 3.98 10^6/uL (3.72-5.28) 12/25/19 06:05 Hgb 13.4 g/dL (12.0-15.5) 12/25/19 06:05 Hct 38.0 % (36.0-47.0) 12/25/19 06:05 MCV 95 fl (80-97) 12/25/19 06:05 MCH 33.5 pg (27.0-33.4) H 12/25/19 06:05 MCHC 35.2 g/dL (32.0-36.0) 12/25/19 06:05 RDW 13.9 % (11.5-14.0) 12/25/19 06:05 Plt Count 156 10^3/uL (150-450) 12/25/19 06:05 Lymph % (Auto) 10.0 % (13-45) L 12/24/19 09:52 [place] % (Auto) 5.2 % (3-13) 12/24/19 09:52 Eos % (Auto) 0.0 % (0-6) 12/24/19 09:52 Baso % (Auto) 0.3 % (0-2) 12/24/19 09:52 Absolute Neuts (auto) 11.0 10^3/uL (1.7-8.2) H 12/24/19 09:52 Absolute Lymphs (auto) 1.3 10^3/uL (0.5-4.7) 12/24/19 09:52 Absolute Monos (auto) 0.7 10^3/uL (0.1-1.4) 12/24/19 09:52 Absolute Eos (auto) 0.0 10^3/uL (0.0-0.6) 12/24/19 09:52 Absolute Basos (auto) 0.0 10^3/uL (0.0-0.2) 12/24/19 09:52 Seg Neutrophils % 84.5 % (42-78) H 12/24/19 09:52 Urine Color YELLOW 12/24/19 05:17 Urine Appearance CLEAR 12/24/19 05:17 Urine pH 8.0 (5.0-9.0) 12/24/19 05:17 Ur Specific [place] 1.009 12/24/19 05:17 Urine Protein NEGATIVE mg/dL (NEGATIVE) 12/24/19 05:17 Urine Glucose (UA) NEGATIVE mg/dL (NEGATIVE) 12/24/19 05:17 Urine Ketones NEGATIVE mg/dL (NEGATIVE) 12/24/19 05:17 Urine Blood SMALL (NEGATIVE) H 12/24/19 05:17 Urine Nitrite NEGATIVE (NEGATIVE) 12/24/19 05:17 Urine Bilirubin NEGATIVE (NEGATIVE) 12/24/19 05:17 Urine Urobilinogen NEGATIVE mg/dL (<2.0) 12/24/19 05:17 Ur Leukocyte Esterase NEGATIVE (NEGATIVE) 12/24/19 05:17 Urine Ascorbic Acid NEGATIVE (NEGATIVE) 12/24/19 05:17 Urine Opiates Screen NEGATIVE 12/24/19 05:17 Urine Methadone Screen NEGATIVE 12/24/19 05:17 Ur Barbiturates Screen NEGATIVE 12/24/19 05:17 Ur Phencyclidine Scrn NEGATIVE 12/24/19 05:17 Ur Amphetamines Screen NEGATIVE 12/24/19 05:17 U Benzodiazepines Scrn NEGATIVE 12/24/19 05:17 Urine Cocaine Screen NEGATIVE 12/24/19 05:17 U Marijuana (THC) Screen NEGATIVE 12/24/19 05:17 RPR NONREACTIVE (NONREACTIVE) 12/24/19 09:52 Blood Type A POSITIVE 12/24/19 09:52 Antibody Screen NEGATIVE 12/24/19 09:52 Plan Plan of Treatment: f/u at [facility] Time Spent: Less than 30 Minutes
[2019-12-26] MEDS: SERTRALINE HCL 50 MG TABLET PO SCH (10:38)
[2019-12-26] MEDS: DOCUSATE SODIUM 100 MG CAPSULE PO SCH (10:38)
[2019-12-26] MEDS: PRENATAL VITAMIN W DHA CAPSULE PO SCH (10:38)
[2019-12-26] MEDS: FAMOTIDINE 20 MG TABLET PO SCH (10:39)
[2019-12-26] MEDS: FERROUS SULFATE 325 MG TABLET PO SCH (10:39)
[2019-12-26] MEDS: SENNOSIDES/DOCUSATE 8.6-50 MG 1 EACH TABLET PO SCH (10:40)
== END 2019-12-26 14:25 | disposition home or self-care (01) | DRG 807 ==
LOC: LC 05:08 → LR 09:34 → 2S 20:20
PROVIDERS: ADMIT Obstetrics & Gynecology Gynecology; ATTEND Obstetrics & Gynecology Gynecology
PROC: 10E0XZZ Delivery of Products of Conception, External Approach (ICD-10-PCS; principal; 2019-12-24)
DX: O16.4 Unspecified maternal hypertension, complicating childbirth (principal); Z37.0 Single live birth; O99.344 Other mental disorders complicating childbirth; F41.9 Anxiety disorder, unspecified; O71.82 Other specified trauma to perineum and vulva; Z3A.38 38 weeks gestation of pregnancy
CPT/HCPCS: 1967; 36415; 80307; 81005; 85025; 85027; 86592; 86850; 86900; 86901; 94760; J2590; J2795; J3010; J3490